=== PATIENT | female | born 1940 | race Caucasian/White ===

== ENCOUNTER 2016-07-25 07:52 | Inpatient (IN) | payer MEDICARE, OTHER ==
[2016-07-25] VITALS (14 sets, daily range): BP systolic 122–141; BP diastolic 64–86; PULSE 74–85; RESP 8–19; O2SAT 94–100
[~2016-07-25] VITALS: Ht 175.3 cm; Wt 86.2 kg
[~2016-07-25 07:52] MED LIST: ALPR0.254 PO; AMIT10TA6 PO; Bupivacaine Liposome 1.3% 20 mL Inj INFILTRATE ONE; CHOL10008 PO; CLOP75TA3 PO; CYAN500 PO; CeFAZolin Inj 2 GM in IV Premix 1 EACH IV ONE; LAMO150T PO; LEVO50TA6 PO; LISI-567 PO; Lactated Ringer's 1,000 ML IV SCH; PRAV10TA2 PO; TRIA10.8 NS; Vancomycin Inj 1,000 MG in IV Premix 1 EACH IV ONE
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
[2016-07-25] MEDS ORDERED: Lactated Ringer's 1,000 ML IV ONE (08:35)
[2016-07-25] MEDS ORDERED: LAMO150T PO (09:40)
[2016-07-25] MEDS ORDERED: Bupivacaine Liposome 1.3% 20 mL Inj ONE (10:44)
[2016-07-25] MEDS ORDERED: MetoCLOpramide 5 mg/mL 2 mL Inj IVPUSH PRN (10:45)
[2016-07-25] MEDS ORDERED: Dexamethasone 4 mg/mL Inj IVPUSH PRN (10:45)
[2016-07-25] MEDS ORDERED: Lactated Ringer's 500 ML IV PRN (10:45)
[2016-07-25] MEDS ORDERED: Ondansetron 2 mg/mL 2 mL Inj IVPUSH PRN (10:45)
[2016-07-25] MEDS ORDERED: HYDROmorphone 1 mg/mL Inj IVPUSH PRN (10:45)
[2016-07-25] MEDS ORDERED: fentaNYL-PF 50 mCg/mL 2 mL Inj IVPUSH PRN (10:45)
[2016-07-25] MEDS ORDERED: Phenylephrine 10,000 mCg/mL Inj IVPUSH PRN (10:45)
[2016-07-25] MEDS ORDERED: Lactated Ringer's 1,000 ML IV SCH (10:45)
[2016-07-25] MEDS ORDERED: EPHEDrine Sulfate 50 mg/mL Inj IVPUSH PRN (10:45)
[2016-07-25] MEDS ORDERED: Bupivacaine-MPF 0.25%/EPI 30 mL Inj INJ ONE (12:24)
[2016-07-25] MEDS ORDERED: Gentamicin 40 mg/mL 2 mL Inj IRRIGATION ONE (12:26)
[2016-07-25 14:05] LABS: APPEARANCE,URINE HAZY (CLEAR,HAZY); COLOR,URINE STRAW (YELLOW)
[2016-07-25 14:06] LABS: OCCULT BLOOD,URINE NEGATIVE (NEGATIVE); UROBILINOGEN,URINE NORMAL (NORMAL)
--- NOTE | 2016-07-25 14:17 | DRSVH ---
PROCEDURE: X-RAY LEFT KNEE, ONE OR TWO VIEWS ([id number]) INDICATIONS: CHECK ALIGNMENT TECHNIQUE: 2 view(s) of the knee acquired. COMPARISON: None. FINDINGS: Bones: Patient is status post knee joint arthroplasty. Hardware components are in expected position s. Visualized bony structures are intact. Soft tissues: Overlying postoperative changes are noted. IMPRESSION: Expected postoperative alignment after left total knee arthroplasty, with a surgical drai n overlying the operative bed. Dictated by: Wolfgang Unger M.D. on 07/25/2016 at 14:15 Approved by: Wolfgang Unger M.D. on 07/25/2016 at 14:15
[2016-07-25] MEDS ORDERED: Ketamine 10 mg/mL 20 mL Inj ONE (14:18)
[2016-07-25] MEDS ORDERED: Ondansetron 2 mg/mL 2 mL Inj ONE (14:18)
[2016-07-25] MEDS ORDERED: fentaNYL-PF 50 mCg/mL 2 mL Inj ONE (14:18)
[2016-07-25] MEDS ORDERED: Propofol 10,000 mCg/mL 20 mL Inj ONE (14:18)
[2016-07-25] MEDS ORDERED: Dexamethasone 4 mg/mL Inj ONE (14:18)
[2016-07-25] MEDS ORDERED: Sodium Biphos-Phos 133 mL Enema RECTAL PRN (14:55)
[2016-07-25] MEDS ORDERED: Senna-Docusate 8.6-50 mg Tablet PO PRN (14:55)
[2016-07-25] MEDS ORDERED: Magnesium Hydroxide 10 mL Oral Concentration PO PRN (14:55)
[2016-07-25] MEDS ORDERED: HYDROcodone-APAP 5-325 mg Tablet PO PRN (14:55)
[2016-07-25] MEDS ORDERED: Alum-Mag Hydrox-Simeth 30 mL Suspension PO PRN (14:55)
[2016-07-25] MEDS ORDERED: Ondansetron 2 mg/mL 2 mL Inj IV PRN (14:55)
[2016-07-25] MEDS ORDERED: Ondansetron 8 mg ODT Tablet PO PRN (14:55)
[2016-07-25] MEDS ORDERED: MetoCLOpramide 5 mg/mL 2 mL Inj IV PRN (14:55)
[2016-07-25] MEDS ORDERED: diphenhydrAMINE 25 mg Capsule PO PRN (14:55)
[2016-07-25] MEDS ORDERED: LORazepam 0.5 mg Tablet PO PRN (14:55)
[2016-07-25] MEDS: Lactated Ringer's 1,000 ML IV SCH (15:15)
[2016-07-25] MEDS: hydrOXYzine Pamoate 25 mg Capsule PO PRN ×2 (15:46→20:53)
--- NOTE | 2016-07-25 16:08 | OP ---
[address] [address] OPERATIVE REPORT PATIENT: HEIKE MICHAEL : 1940 MR#: [id number] ADMIT: 07/25/2016 JOB ID: [id number] DATE OF SURGERY: 07/25/2016 PREOPERATIVE DIAGNOSIS(ES): Severe arthritis, left knee. POSTOPERATIVE DIAGNOSIS(ES): Severe arthritis, left knee. PROCEDURE: Left total knee replacement. SURGEON: Benjamin Hernandez MD ELECTRONICS RESEARCH ENGINEER: Merle Morgan. Diesel Truck Technician required due to the major complexity of the operation. INDICATIONS FOR THE PROCEDURE: This patient has failed conservative management, and reports severe disability associated with advanced arthritis of her knee. She elects to proceed with a total knee. She understands the potential for risks and complications, which include but is not limited to infection, thromboembolic, neurovascular events, as well as the potential for implant failure. DESCRIPTION OF PROCEDURE: The patient was prepped and draped in the usual sterile fashion. An anteromedial approach was made. The patella was subluxed laterally, cut transversely, sized to a 35 mm implant. Drill holes were made. Patellar protection plate utilized. Drill hole placed in the distal femur and a 5 degree valgus distal femoral cut was made. The femur was sized initially to an 8 femoral component, then downsized to a 7. Chamfer cuts and drill holes were made. The extramedullary tool was used to cut the tibia. All meniscal tissue and osteophytes were removed from the knee. The tibia was sized to an E tibial component, fixed in appropriate position in rotation. Trial reductions performed, and an 11 mm polyethylene was chosen. Preparation of the tibial surface ensued with drill and punch. Pressurized lavage was followed by pressurized cementation of the components. Excess cement was removed during the curing process. Final construct was subsequently assembled. The patient was taken to the recovery room in stable condition after closure over deep Hemovac drain with #2 Quill deep followed by a 2-0 Vicryl, 3-0, and a 4-0 intracuticular with subsequent sterile dressing applied.
--- NOTE | 2016-07-25 17:12 | PCM.ANEP2 ---
Post Anesthesia Evaluation ASA/CMS Post Anesthesia VS in Patient's Normal Range?: Yes Resp Stable; Airway Patent?: Yes CV Function & Hydration Stable: Yes Mental Status Recovered?: Yes Pain control Satisfactory?: Yes N/V Control Satisfactory?: Yes Stephon Copeland MD Jul 25, 2016 17:12
--- NOTE | 2016-07-25 17:12 | PCM.ANEP1 ---
Post Anesthesia Phase 1 PACU Phase 1 Assessment Vital Signs Vital Signs Date Time Temp Pulse Resp B/P Pulse Ox O2 Delivery O2 Flow Rate FiO2 07/25/16 14:49 35.5 79 15 141/82 96 07/25/16 14:20 78 14 122/86 97 Room Air 07/25/16 14:15 78 14 140/68 97 Room Air 07/25/16 14:06 14 99 07/25/16 14:00 36.3 76 19 139/72 99 Room Air 07/25/16 13:58 18 98 07/25/16 13:45 75 15 125/69 99 Nasal Cannula 2 07/25/16 13:40 74 15 131/64 99 Nasal Cannula 2 07/25/16 13:35 76 8 131/64 100 Nasal Cannula 2 07/25/16 13:31 14 99 07/25/16 13:30 80 15 126/64 99 Nasal Cannula 2 07/25/16 13:28 36.7 81 16 129/64 99 Nasal Cannula 2 Anesthetic Administered: Regional Block, SAB Level of Alertness: Awake, talking SHARPE's with Equal Strength: No (POST OP, PT HAD SPINAL) Pain: No Nausea or Vomiting: No Oxygen Delivery: Nasal Cannula Lungs: Clear to Auscultation, Normal Air Movement Dermatome Level: Full Sensation Stephon Copeland MD Jul 25, 2016 17:12
[2016-07-25] MEDS ORDERED: CeFAZolin Inj 2 GM in IV Premix 1 EACH IV SCH (20:00)
[2016-07-25] MEDS: CeFAZolin Inj 2 GM in IV Premix 1 EACH IV SCH (20:02)
[2016-07-25] MEDS: LAMICTAL 150 MG PO SCH (20:06)
[2016-07-25] MEDS ORDERED: LAMOTRIGINE PO SCH (21:00)
[2016-07-25] MEDS ORDERED: Vancomycin 1 Gm/200 mL NS Premix IV ONE (21:00)
[2016-07-25] MEDS: oxyCODONE-Acetamin 5-325 mg Tablet PO PRN ×2 (22:17→22:53)
[2016-07-26 00:35] VITALS: BP 127/72; PULSE 78; RESP 16; O2SAT 95
[2016-07-26] MEDS: CeFAZolin Inj 2 GM in IV Premix 1 EACH IV SCH ×2 (04:09→11:34)
[2016-07-26] MEDS: oxyCODONE-Acetamin 5-325 mg Tablet PO PRN ×4 (04:16→22:08)
[2016-07-26] MEDS: hydrOXYzine Pamoate 25 mg Capsule PO PRN ×4 (04:17→22:08)
[2016-07-26 05:08] VITALS: BP 95/54; PULSE 73; RESP 16; O2SAT 96
[2016-07-26 05:11] VITALS: BP 116/66
[2016-07-26 05:31] LABS: BASOPHILS % (AUTO) 0.1 % (0-3); EOSINOPHILS % (AUTO) 0 % (0-5); MONOCYTES % (AUTO) 8.7 % (4-12); Mean Corpuscular Hemoglobin 32.2 pg (27.0-35.0); Mean Corpuscular Volume 95.6 fL (81-100); NEUTROPHILS % (AUTO) 75.3 % (40-74); Platelet Count 201 bil/L (150-400)
[2016-07-26] MEDS: Lactated Ringer's 1,000 ML IV SCH (07:35)
[2016-07-26] MEDS: Fluticasone 0.05% 15 Spray/2 Gm 16 Gm Nasal Spray NASAL SCH ×3 (08:30→08:36)
[2016-07-26] MEDS: LAMICTAL 150 MG PO SCH ×2 (08:34→21:05)
--- NOTE | 2016-07-26 08:37 | PCM.PNORTH ---
Subjective Date of Service: Jul 26, 2016 Visit Information: Reason for Visit Left Knee Arthritis Surgery/Surgery Date L TKA 07/25/16 Post-Op Day # Date of Admission: Jul 25, 2016 at 14:17 Hospital Day # Subjective Found the patient awake and alert this morning and sitting up in bed. No complaints of pain at this time. 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 Patient relates she has had a knee done on her other side by Dr. Hernandez in her past and is familiar with the process. She does have a spouse at home which will be helping her postop. She relates that she has 5 steps to enter her home but no steps when she is inside. She does have a front-wheeled walker at home and she is arranging outpatient physical therapy to begin as soon as possible after discharge. We have discussed participation with formal physical therapy this morning and I have encouraged her to work with them to the best of her ability at each session. She is currently taking Percocet 5 mg and Vistaril 25 mg and is comfortable. I have explained to her that she may wish to be medicated 30-45 minutes prior to her PT sessions if this can be worked out with nursing and physical therapy timing. Patient anticipates discharge to home on her before postop day 3. Postop General: No Complaints, No Shortness of Breath, No Chest Pain Pain Management: PO Objective Exam Objective Orientation: Alert and oriented 3 and pleasant. Dressing: Interoperative dressing is clean dry and intact. Wound: Wound is not observed today. Compartments: Calf and thigh are soft and nontender. Mobility/sensation: Toe wiggle and sensation are intact at the left lower extremity distally. Abduction wedge: None SHAYY hose: None. Bilateral thigh-high SHAYY hose will be ordered today. Trent: None. Removed at 4:30 this morning. Wound VAC: None Drain: Hemovac drain in place and working with scant blood in tubing and none in canister. Gait: No gait as of this time. Vital Signs and I/O Vital Sign - Last Date Time Temp Pulse Resp B/P Pulse Ox O2 Delivery O2 Flow Rate FiO2 07/26/16 05:11 116/66 07/26/16 05:08 36.6 73 16 96 Room Air 07/25/16 13:45 2 Intake and Output 07/25/16 07/25/16 07/26/16 Cumulative From/Thru 15:00 23:00 07:00 07/24/16 14:32 - 07/26/16 05:52 Intake Total 1200 ml 790 ml 1062 ml 3052 ml Output Total 550 ml 625 ml 750 ml 1925 ml Balance 650 ml 165 ml 312 ml 1127 ml Intake Oral 520 ml 300 ml 820 ml IV Total 1200 ml 270 ml 762 ml 2232 ml Output Urine Total 550 ml 625 ml 750 ml 1925 ml Drainage Total 0 ml 0 ml 0 ml # Bowel Movements 0 0 0 Lab & Micro Results Laboratory Tests Test 07/25/16 13:45 07/26/16 05:15 Urine Color Straw (YELLOW) Urine Appearance Hazy (CLEAR,HAZY) Urine pH 6.0 (5.0-8.0) Urine Specific [place] 1.025 (1.003-1.035) Urine Protein Negativemg/dL (NEG,TRACE) Urine Glucose (UA) Negativemg/dL (NEGATIVE) Urine Ketones Negativemg/dL (NEGATIVE) Urine Occult Blood Negative (NEGATIVE) Urine Nitrite Negative (NEGATIVE) Urine Bilirubin Negative (NEGATIVE) Urine Urobilinogen Normalmg/dL (NORMAL) Urine Leukocyte Esterase Negative (NEGATIVE) Urine RBC 0-2/hpf (0-2) Urine WBC 0-5/hpf (0-5) Urine Epithelial Cells Occasional/hpf (NONE-MOD) Urine Crystals None seen (NONE SEEN) Urine Bacteria None/hpf (NONE-FEW) Urine Hyaline Casts None/lpf (NONE) Urine Granular Casts None seen (NONE SEEN) Urine Waxy Casts None seen (NONE SEEN) Urine Red Blood Cell Casts None seen (NONE SEEN) Urine White Blood Cell Casts None seen (NONE SEEN) Urine Mucus Present (None Seen) Urine Trichomonas None seen (NONE SEEN) Urine Yeast None (NONE SEEN) Urinalysis Comment None Urine Culture Reflexed Not indicated White Blood Count 9.3th/mm3 (3.8-10.1) Red Blood Count 3.39mil/mm3 (3.90-5.20) Hemoglobin 10.9g/dL (12.0-15.6) Hematocrit 32.4% (35.0-46.0) Mean Corpuscular Volume 95.6fL (81-100) Mean Corpuscular Hemoglobin 32.2pg (27.0-35.0) Mean Corpuscular Hemoglobin Concent 33.6% (32.0-37.0) Red Cell Distribution Width 12.2% (12.3-15.4) Platelet Count 201bil/L (150-400) Neutrophils (%) (Auto) 75.3% (40-74) Lymphocytes (%) (Auto) 15.7% (14-46) Monocytes (%) (Auto) 8.7% (4-12) Eosinophils (%) (Auto) 0% (0-5) Basophils (%) (Auto) 0.1% (0-3) Result Diagram: 07/26/16 0515 General Appearance: Alert, Oriented X3, Cooperative, No Acute Distress Extremities: No Compartment Syndrom Noted, Thigh & Calf Soft/Nontender Postop Sensory Motor: Distal Motor Intact, Movement in Toes, Distal Sensation Intact SURGICAL WOUND : Drain Location Body Site: Knee Wound Drainage Type: Hemovac Activity: Activity per PT, Ambulate with PT (weightbearing as tolerated on the left lower extremity using front wheeled walker.) Catheters: None Assessment & Plan Impression Patient is a very pleasant and alert 76-year-old female who has undergone a left total knee arthroplasty on 07/25/2016. She has a history of her previous right knee TKA which she recovered from well and is quite mobile. She is in good spirits and is familiar with this process and anticipates CLAUDY recovery and return to her usual high level of mobility. Problems: Plan Postop day # 1 from left total knee arthroplasty performed on 07/25/[address] Benjamin Hernandez. Weight bearing status: Weightbearing as tolerated on the left lower extremity Mobility aid: Front wheeled walker Immobilization: None Precautions: Standard postop safety precautions for total knee arthroplasty Physical therapy: Continue formal physical therapy for mobility, gait and safety. Pain control: Continue by mouth pain medication in the form of Percocet 5/325 and Vistaril. DVT prophylaxis: Patient is currently on chronic Plavix. Wound care: Keep wound clean and dry and covered until seen in office in 2 weeks. Infectious DZ: None Trent: None Dressing: Interoperative dressing is clean dry and intact and will be changed to postop type dressing tomorrow on postop day 2. Drain: In place and working with scant output and will be removed tomorrow on postop day 2. Abduction wedge: None SHAYY hose: None. Bilateral thigh-high SHAYY hose will be ordered today. Nursing communication: Nursing please measure and fit bilateral thigh-high SHAYY hose today. 2-week follow-up: Follow-up in 2 weeks at [facility] orthopedic clinic on prearranged appointment with mid-level provider for wound check and suture removal. 6-week follow-up: Follow-up in 6 weeks at [facility] orthopedic clinic Dr. Benjamin Hernandez with left two-view knee x-rays on arrival. Plan: Patient will continue her inpatient stay and participate in formal physical therapy and ideally discharge to home with spouse as caregiver on postop day 2 or 3. Discharge instructions: Weightbearing as tolerated on the left lower extremity using frontwheel walker. Work on gentle range of motion of the knee at home and in formal therapy. Patient may be up and about and should balance rest and activity. No driving while on narcotic pain medications. Keep surgical wound clean and dry and covered until seen in office in 2 weeks. Begin formal physical therapy as soon as possible after discharge. Discharge plan: Anticipate discharge to home with spouse as caregiver on postoperative day 2 or 3. VTE Prophylaxis: SCDs (right lower extremity only), SHAYY Hose (bilateral thigh- high SHAYY hose will be ordered today.), Other (patient is restarted on her regular chronic dose of Plavix immediately postop.) Graham Fuentes PA-C Jul 26, 2016 06:41
[2016-07-26] MEDS ORDERED: CeFAZolin Inj 2 GM in Dextrose 5% 50 ML IV SCH (15:07)
[2016-07-26 15:08] VITALS: BP 114/62; PULSE 78; RESP 16; O2SAT 95
[2016-07-26 19:52] VITALS: BP 121/69; PULSE 85; RESP 18; O2SAT 95
[2016-07-26] MEDS: CeFAZolin Inj 2 GM in Dextrose 5% 50 ML IV SCH (20:56)
[2016-07-27] MEDS: Lactated Ringer's 1,000 ML IV SCH (00:15)
[2016-07-27 04:24] VITALS: BP 131/69; PULSE 86; RESP 18; O2SAT 95
[2016-07-27] MEDS: CeFAZolin Inj 2 GM in Dextrose 5% 50 ML IV SCH ×2 (04:25→12:39)
[2016-07-27] MEDS: hydrOXYzine Pamoate 25 mg Capsule PO PRN ×2 (04:32→09:18)
[2016-07-27] MEDS: oxyCODONE-Acetamin 5-325 mg Tablet PO PRN ×2 (04:33→09:18)
[2016-07-27] MEDS: Fluticasone 0.05% 15 Spray/2 Gm 16 Gm Nasal Spray NASAL SCH (09:10)
[2016-07-27] MEDS: LAMICTAL 150 MG PO SCH (09:13)
--- NOTE | 2016-07-27 10:51 | PCM.PNORTH ---
Subjective Date of Service: Jul 27, 2016 Visit Information: Reason for Visit Left Knee Arthritis Surgery/Surgery Date L TKA 07/25/16 Post-Op Day # 2 Date of Admission: Jul 25, 2016 at 14:17 Hospital Day # Subjective Patient states her knee is throbbing and painful but it is tolerable. She states she has just finished physical therapy. She states she has a commode, shower chair, and a variety of assistive devices at home. She has had a previous replacement and feels as if she is well prepared. Postop General: No Complaints, No Shortness of Breath, No Chest Pain, Good Appetite Pain Management: PO Objective Exam Objective Laying in bed Vital Signs and I/O Vital Sign - Last Date Time Temp Pulse Resp B/P Pulse Ox O2 Delivery O2 Flow Rate FiO2 07/27/16 04:24 36.8 86 18 131/69 95 Room Air 07/25/16 13:45 2 Intake and Output 07/26/16 07/26/16 07/27/16 Cumulative From/Thru 15:00 23:00 07:00 07/24/16 14:32 - 07/27/16 05:47 Intake Total 248 ml 1388 ml 500 ml 5188 ml Output Total 370 ml 455 ml 2750 ml Balance 248 ml 1018 ml 45 ml 2438 ml Intake Oral 1320 ml 400 ml 2540 ml IV Total 248 ml 68 ml 100 ml 2648 ml Output Urine Total 350 ml 400 ml 2675 ml Drainage Total 20 ml 55 ml 75 ml # Voids 2 2 4 # Bowel Movements 1 1 Result Diagram: 07/26/16 0515 General Appearance: Alert, Oriented X3, Cooperative, No Acute Distress Extremities: Distal Pulses Palpable, No Compartment Syndrom Noted, Thigh & Calf Soft/Nontender Postop Sensory Motor: Distal Motor Intact, Movement in Toes, Distal Sensation Intact, NVI Distally SURGICAL WOUND : Wound Location/Description Perioperative dressings changed to an island dressing. Hemovac drain pulled and a pressure dressing was placed. Incision is c/d/i, absent of erythema or drainage. Appears to be healing well. Drain Location Body Site: Knee Incision General Appearance: Steri Strips, Well Approximated, Incision Healing Dressing & Drainage Status: Changed Activity: Activity per PT, Ambulate with PT (weightbearing as tolerated on the left lower extremity using front wheeled walker.) Catheters: None Assessment & Plan Impression Postop day #2 left total knee arthroplasty Problems: Plan Weightbearing: Weightbearing as tolerated with a front wheeled walker DVT prophylaxis: Aspirin 81 mg twice a day 6 weeks Physical therapy for transfers, progressive ambulation, strengthening Wound care: Keep dressing on for one week after surgery. Wear compression stockings, ice and elevate. Shower instructions: May shower in one week if incision is dry. Do not scrub incision. Do not soak or submerge. Pat dry. Analgesia: Percocet for pain and Vistaril for discomfort and spasms. Discharge plan: Discharge home in today. Start outpatient physical therapy next week. Follow-up plan: In 2 weeks at [facility] with FLORENCIA for wound check and at [address] Hernandez with x-rays VTE Prophylaxis: SCDs (right lower extremity only), SHAYY Hose (bilateral thigh- high SHAYY hose will be ordered today.), Other (patient is restarted on her regular chronic dose of Plavix immediately postop.) Merle Morgan PA-C Jul 27, 2016 10:50
--- NOTE | 2016-07-27 10:53 | PCM.DIORTH ---
Ortho Discharge Instruction Date of Service: Jul 27, 2016 Dates of Hospitalization Date of Hospital Admission Jul 25, 2016 at 14:17 Providers Admitting Physician: Benjamin Hernandez MD Primary Care Physician: Floyd Morse MD Attending Physician: Benjamin Hernandez MD Diet Discharge Diet: No restrictions Activity Discharge Activity-General: Be up and about, Elevate & ice extremity, Ice incision 3-5 time/day for 20min Left Lower Extremity: Weight Bearing as tolerated Discharge Assist Device: Front Wheeled Walker Dressing and Incisional Care Discharge Dressing Care: Keep dressing clean, dry & intact, Allow Steri Stripes to fall off Discharge Hygiene: DO NOT soak incision under water, NO bathtub, hot tub or whirlpool Additional Instructions Discharge Instructions Weightbearing: Weightbearing as tolerated with a front wheeled walker DVT prophylaxis: Aspirin 81 mg twice a day 6 weeks Physical therapy for transfers, progressive ambulation, strengthening Wound care: Keep dressing on for one week after surgery. Wear compression stockings, ice and elevate. Shower instructions: May shower with dressings covered with a plastic bag or saran wrap. In one week, if incision is dry, patient may remove dressing and shower without incision being covered. Do not scrub incision. Do not soak or submerge. Pat dry. Analgesia: Percocet for pain and Vistaril for discomfort and spasms. Follow-up plan: In 2 weeks at [facility] with FLORENCIA for wound check and at [address] Hernandez with x-rays Merle Morgan PA-C Jul 27, 2016 10:53
[2016-07-27] MEDS ORDERED: HYDR-3797 PO (10:55)
[2016-07-27] MEDS ORDERED: OXYC1TAB24 PO (10:55)
[2016-07-27] MEDS ORDERED: ASPI-973 PO (10:56)
--- NOTE | 2016-07-27 10:59 | PCM.DC.ORT ---
Discharge Summary Date of Service: Jul 27, 2016 Date of Hospital Admission: Jul 25, 2016 at 14:17 Date of Surgery: Jul 25, 2016 Date of Discharge: Jul 27, 2016 Reason for Hospitalization: Left knee osteoarthritis Procedures Performed: Left total knee arthroplasty Hospital Course: The patient was admitted to the hospital on 07/25/2016 and underwent the above procedure. Antibiotic prophylaxis consisting of Ancef and vancomycin. The surgeon was Dr. Hernandez. A Trent was placed perioperatively. Patient tolerated the procedure well and was transferred to recovery room in stable condition. Trent was discontinued on postop day 1. Patient had physical therapy to work on ambulation and transfers. Weightbearing as tolerated with walker. Pain was managed with Dilaudid, Percocet, Vistaril, Toradol. DVT prophylaxis: Aspirin 81 mg twice a day and SCDs. Hospital course was uncomplicated. Patient was able to perform adequately enough to be discharged home on postop day 2. Follow-up: at [facility] 2 weeks postop for wound check and at [address] Hernandez with x-ray. Diagnosis at Time of Discharge Status post left total knee arthroplasty Problems: Disposition: Stable, discharged to home Discharge Instructions: Weightbearing: Weightbearing as tolerated with a front wheeled walker DVT prophylaxis: Aspirin 81 mg twice a day 6 weeks Physical therapy for transfers, progressive ambulation, strengthening Wound care: Keep dressing on for one week after surgery. Wear compression stockings, ice and elevate. Shower instructions: May shower with dressings covered with a plastic bag or saran wrap. In one week, if incision is dry, patient may remove dressing and shower without incision being covered. Do not scrub incision. Do not soak or submerge. Pat dry. Analgesia: Percocet for pain and Vistaril for discomfort and spasms. Follow-up plan: In 2 weeks at [facility] with PA for wound check and at [address] Hernandez with x-rays Amitriptyline (Amitriptyline) 10 Mg Tablet 10 MG PO HS Aspirin (Aspirin) 81 Mg Tablet 81 MG PO BID Cholecalciferol (Vitamin D3) (Vitamin D3) 1,000 Unit Tab.chew 1,000 UNIT PO DAILY Clopidogrel Bisulfate (Plavix) 75 Mg Tablet 75 MG PO DAILY Cyanocobalamin (Vitamin B12) 500 Mcg Tablet 1,000 MCG PO DAILY Hydroxyzine Pamoate (HydrOXYzine Pamoate) 25 Mg Capsule 0 MG PO Q4H PRN PRN For Restlessness Lamotrigine (Lamictal) 150 Mg Tablet 300 MG PO BID TAKES 225MG IN AM; 300MG IN PM Lamotrigine (Lamictal) 150 Mg Tablet 150 MG PO HS Levothyroxine (Levothyroxine) 50 Mcg Tablet 50 MCG PO DAILY Lisinopril (Lisinopril) 20 Mg Tablet 20 MG PO DAILY Pravastatin (Pravastatin) 10 Mg Tablet 40 MG PO HS Triamcinolone Acetonide (Nasacort) 10.8 Ml [place] 10.8 ML NS DAILY oxyCODONE-Acetaminophen 5-325 mg (oxyCODONE-Acetaminophen 5-325 mg) 1 Each Tablet 1-2 TAB PO Q3H PRN PRN For Severe Pain Merle Morgan PA-C Jul 27, 2016 10:59
[2016-07-27 15:06] VITALS: BP 147/76; PULSE 90; RESP 17; O2SAT 96
== END 2016-07-27 16:00 | disposition home or self-care (01) | DRG 470 ==
LOC: SAS 07:52 → OSC 14:17
PROVIDERS: ADMIT Orthopaedic Surgery; ATTEND Orthopaedic Surgery
PROC: 0SRD0J9 Replacement of Left Knee Joint with Synthetic Substitute, Cemented, Open Approach (ICD-10-PCS; principal; 2016-07-25 10:45)
DX: M17.12 Unilateral primary osteoarthritis, left knee (principal)